=== PATIENT | female | born 1960 | race African-American/Black ===

== ENCOUNTER 2016-08-21 14:40 | Emergency (ER) | payer MEDICAID ==
[~2016-08-21] VITALS: Ht 149.9 cm; Wt 72.0 kg
[~2016-08-21 14:40] MED LIST: ALBU6.7H INH; AMLO5TAB4 PO; ASPI-1159 PO; ATOR20TA65 PO; ATROV INH; BENA20TA3 PO; CARI350T27 PO; DOCU100C57 PO; MEPE50TA4 PO; PANT40TA4 PO
[2016-08-21] MEDS ORDERED: MORPHINE SULFATE 10 MG/ML CPJ IM ONE (19:15)
[2016-08-21 19:51] VITALS: BP 130/67
[2016-08-21 19:55] LABS: EOSINOPHILS % 2.1 % (0.0-5.0); HEMATOCRIT. 37.2 % (36.0-48.0); HEMOGLOBIN. 12.5 g/dL (12.0-16.0); LYMPHOCYTES % 31.9 % (20.0-50.0); MEAN CORPUSCULAR HEMOGLOBIN 30.3 pg (28.0-32.0); MEAN CORPUSCULAR VOLUME 90.2 fL (81.0-99.0); MEAN PLATELET VOLUME 8.5 fl (7.4-10.4); MONOCYTES % 5.4 % (2.0-8.0); NEUTROPHILS % 59.6 % (40.0-76.0); PLATELET 247 x1000/uL (130-400); RED BLOOD CELL COUNT 4.12 mill/uL (4.2-5.4)
[2016-08-21 20:00] LABS: CHLORIDE 109 mEq/L (98-107); PROTHROMBIN TIME 10.3 sec
[2016-08-21 20:05] LABS: CARBON DIOXIDE 26 mEq/L (21-32)
[2016-08-21 21:15] LABS: *AMPHETAMINES SCREEN URINE NEGATIVE (NEGATIVE); *BARBITURATES SCREEN URINE NEGATIVE (NEGATIVE); *BENZODIAZEPINES SCREEN URINE NEGATIVE (NEGATIVE); *COCAINE SCREEN URINE NEGATIVE (NEGATIVE); CANNABINOID URINE SCREEN NEGATIVE (NEGATIVE); METHADONE URINE SCREEN NEGATIVE (NEGATIVE); OPIATES URINE SCREEN PRESUMTIVE POSITIVE (NEGATIVE); PHENCYCLIDINE URINE SCREEN NEGATIVE (NEGATIVE)
== END 2016-08-21 22:14 | disposition home or self-care (01) ==
LOC: ER 14:40
DX: R07.89 Other chest pain (principal); H57.12 Ocular pain, left eye; R42 Dizziness and giddiness; J45.909 Unspecified asthma, uncomplicated; I10 Essential (primary) hypertension; Z88.1 Allergy status to other antibiotic agents; Z88.5 Allergy status to narcotic agent; Z22 Carrier of infectious disease; Z88.8 Allergy status to other drugs, medicaments and biological substances; Z79.82 Long term (current) use of aspirin; Z90.710 Acquired absence of both cervix and uterus; Z98.890 Other specified postprocedural states
CPT/HCPCS: 36415; 71010; 80053; 80305; 83880; 85025; 85610; 93005; 96372; 99285; J2270

== ENCOUNTER 2016-10-15 23:26 | Emergency (ER) | payer MEDICAID ==
[~2016-10-15] VITALS: Ht 149.9 cm; Wt 73.7 kg
[2016-10-15 23:28] VITALS: BP 117/71
[2016-10-16] MEDS ORDERED: TRAMADOL 50MG TABLET PO ONE (01:45)
== END 2016-10-16 02:11 | disposition left against medical advice (07) ==
LOC: ER 23:26
DX: R51 Headache (principal); M51.26 Other intervertebral disc displacement, lumbar region; J45.909 Unspecified asthma, uncomplicated; I10 Essential (primary) hypertension; Z88.1 Allergy status to other antibiotic agents; Z98.890 Other specified postprocedural states; Z88.8 Allergy status to other drugs, medicaments and biological substances; Z91.018 Allergy to other foods; Z79.82 Long term (current) use of aspirin
CPT/HCPCS: 99281; Z7610